=== PATIENT | female | born 1950 | race Caucasian/White ===

== ENCOUNTER 2024-07-12 19:27 | Emergency (ER) | payer OTHER ==
[2024-07-12 19:32] VITALS: BP 126/78; PULSE 86; RESP 18; TEMP 98.2; BMI 25.8
== END 2024-07-12 21:50 | disposition left against medical advice (07) ==
LOC: FER 19:27
DX: Z53.21 Procedure and treatment not carried out due to patient leaving prior to being seen by health care provider (principal)
CPT/HCPCS: 99281-25